=== PATIENT | female | born 1970 | race Two or more races ===

== ENCOUNTER → 2019-04-07 | Emergency (ER) | payer OTHER ==
[~2019-04-07] VITALS: Ht 160 cm; Wt 72.6 kg
[~2019-04-07] MED LIST: MOTION SICKNESS25 M1 PO; PHENERGAN25 MG/SUPP RC
== END | disposition home or self-care (01) ==
LOC: ER 01:26
DX: R42 Dizziness and giddiness (principal); J06.9 Acute upper respiratory infection, unspecified

== ENCOUNTER 2019-05-06 00:05 | Emergency (ER) | payer OTHER ==
[~2019-05-06] VITALS: Ht 160 cm; Wt 72.6 kg
[2019-05-06] MEDS ORDERED: ENALAPRIL MALEAT5 MG PO (02:27)
== END 2019-05-06 02:33 | disposition home or self-care (01) ==
LOC: ER 00:05
DX: I16.0 Hypertensive urgency (principal); I10 Essential (primary) hypertension

== ENCOUNTER 2019-10-16 21:25 | Emergency (ER) | payer OTHER ==
[~2019-10-16] VITALS: Ht 160 cm; Wt 65.8 kg
[~2019-10-16 21:25] MED LIST changes: +ENALAPRIL MALEAT5 MG PO
[2019-10-16] MEDS ORDERED: TOPROL XL25 M1 (21:46)
[2019-10-16] MEDS ORDERED: DOLOGEN CAPLET1 EACH PO (22:04)
== END 2019-10-16 22:25 | disposition home or self-care (01) ==
LOC: ER 21:25
DX: M94.0 Chondrocostal junction syndrome [Tietze] (principal)